=== PATIENT | male | born 1980 | race Hispanic/Latino ===

== ENCOUNTER 2018-06-23 22:40 | Emergency (ER) | payer OTHER ==
[2018-06-24] MEDS ORDERED: DELTASONE PO ONE (00:14)
[2018-06-24] MEDS ORDERED: TORADOL IM ONE (00:14)
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
[2018-06-24] MEDS ORDERED: ZOFRAN ODT ONE (00:39)
[2018-06-24] MEDS ORDERED: ZOFRAN ODT PO ONE (00:39)
[2018-06-24 00:41] VITALS: BP 106/83
== END 2018-06-24 00:41 | disposition home or self-care (01) ==
LOC: ED 22:40
DX: M54.32 Sciatica, left side (principal); F17.200 Nicotine dependence, unspecified, uncomplicated; V49.59XA Passenger injured in collision with other motor vehicles in traffic accident, initial encounter; Y93.89 Activity, other specified; Y92.410 Unspecified street and highway as the place of occurrence of the external cause; Y99.8 Other external cause status
CPT/HCPCS: 96372; 99282; J1885; J7512; Q0162